=== PATIENT | female | born 1945 | race African-American/Black ===

== ENCOUNTER 2021-08-21 12:15 | Emergency (ER) | payer MEDICARE ==
[~2021-08-21] VITALS: Ht 167.6 cm; Wt 91.0 kg
[2021-08-21 13:17] LABS: CHLORIDE 102 mEq/L (98-107); HEMOGLOBIN. 13.5 g/dL (12.0-16.0); MEAN CORPUSCULAR HEMOGLOBIN 26.8 pg (28.0-32.0); MEAN CORPUSCULAR VOLUME 83.6 fL (81.0-99.0); RED BLOOD CELL COUNT 5.03 mill/uL (4.2-5.4); RED CELL DISTRIBUTION WIDTH 15.4 % (11.6-14.6)
[2021-08-21] MEDS ORDERED: POTASSIUM CHLORIDE 20MEQ TABLET SR PO NR (14:00)
[2021-08-21 14:47] LABS: PROTHROMBIN TIME 10.4 sec (9.6-11.0)
[2021-08-21 17:29] VITALS: BP 133/63
[2021-08-21 17:49] LABS: MEAN PLATELET VOLUME 9.7 fl (7.4-10.4); PLATELET 259 x1000/uL (130-400)
[2021-08-21 17:50] LABS: PLATELET ESTIMATE NORMAL
== END 2021-08-21 17:31 | disposition home or self-care (01) ==
LOC: ER 12:35
DX: R51.9 Headache, unspecified (principal); I10 Essential (primary) hypertension; V49.9XXA Car occupant (driver) (passenger) injured in unspecified traffic accident, initial encounter; Y93.89 Activity, other specified; Y92.89 Other specified places as the place of occurrence of the external cause; Y99.8 Other external cause status
CPT/HCPCS: 36415; 71045; 80053; 84484; 85025; 93005; 99285